=== PATIENT | female | born 1955 | race Caucasian/White ===

== ENCOUNTER 2020-09-17 11:17 | Emergency (ER) | payer OTHER ==
[2020-09-17] MEDS ORDERED: NORCO 5-325 TA1 EACH PO (13:46)
== END 2020-09-17 14:03 | disposition home or self-care (01) ==
LOC: FER 11:17
DX: S01.111A Laceration without foreign body of right eyelid and periocular area, initial encounter (principal); S06.0X0A Concussion without loss of consciousness, initial encounter; Z88.0 Allergy status to penicillin; W19.XXXA Unspecified fall, initial encounter; Y92.410 Unspecified street and highway as the place of occurrence of the external cause
CPT/HCPCS: 99283